=== PATIENT | female | born 1950 | race Caucasian/White ===

== ENCOUNTER → 2017-12-04 | Outpatient (CLI) | payer OTHER ==
[~2017-12-04] MED LIST: ASPEC325 PO; CLOP1TAB54 PO; LOSA1TAB PO; LPT/40 PO; METF500T PO; METO25TA3 PO; NITR0.4S UT; PANT40TA PO; PRMVC TOP; excedrin PO
--- NOTE | 2017-12-04 10:43 | DIAGNOSTIC IMAGING REPORT ---
CERVICAL SPINE 2 OR 3 VIEWS HISTORY: Pain Neck pain COMPARISON: None. FINDINGS: The cervical spine is visualized from C1 through the superior endplate of T1. There is no fracture. No subluxation. Moderate degenerative disc change C5-C7. Prevertebral soft tissues and the atlantodens interval are intact. IMPRESSION: Moderate degenerative disc change from C5 through C7. Otherwise negative study. No evidence for compression deformity. The above report was generated using voice recognition software. It may contain grammatical, syntax or spelling errors. Electronically signed by: Augusto Harris M.D. 12/04/2017 10:41 AM Dictated Date/Time: 12/04/2017 10:40 AM
--- NOTE | 2017-12-04 10:59 | DIAGNOSTIC IMAGING REPORT ---
RIGHT SHOULDER 3 VIEWS HISTORY: Right shoulder pain right COMPARISON: None. FINDINGS: There is no fracture or dislocation. The right clavicle is intact. Moderate cartilage space narrowing within the glenohumeral joint with subchondral sclerosis and a large marginal osteophyte at the humeral head. This is consistent with osteoarthritis. IMPRESSION: 1. No fracture or dislocation within the right shoulder. 2. Moderate osteoarthritis at the glenohumeral joint. Electronically signed by: Tomas Morgan M.D. 12/04/2017 10:58 AM Dictated Date/Time: 12/04/2017 10:54 AM
[2017-12-04 12:37] LABS: ALT/SGPT 22 U/L (12-78); AST/SGOT 18 U/L (15-37); BLOOD UREA NITROGEN 16 mg/dl (7-18); CARBON DIOXIDE 30 mmol/L (21-32); CREATININE 0.77 mg/dl (0.60-1.20); GLUCOSE 117 mg/dl (70-99); POTASSIUM 4.2 mmol/L (3.5-5.1); SODIUM 137 mmol/L (136-145)
[2017-12-04 12:40] LABS: CHOLESTEROL 125 mg/dl (0-200); LDL CHOLESTEROL CALCULATED 58 mg/dl
[2017-12-04 12:51] LABS: HEMOGLOBIN A1C 7.1 % (4.5-5.6)
[2017-12-04 18:49] LABS: CREATININE RANDOM URINE 17.1 mg/dl
== END | disposition home or self-care (01) ==
LOC: C.RAD1850 10:09
PROVIDERS: ATTEND Internal Medicine
DX: E78.5 Hyperlipidemia, unspecified (principal); E11.9 Type 2 diabetes mellitus without complications; Z87.39 Personal history of other diseases of the musculoskeletal system and connective tissue; M47.892 Other spondylosis, cervical region; M19.011 Primary osteoarthritis, right shoulder